=== PATIENT | male | born 1955 | race Caucasian/White ===

== ENCOUNTER → 2016-06-16 | Outpatient (CLI) | payer BC | END | disposition home or self-care (01) | LOC: GMAM 13:21 | PROVIDERS: ATTEND Family Medicine | DX: N17.9 Acute kidney failure, unspecified (principal) ==

== ENCOUNTER 2016-07-15 11:45 | Emergency (ER) | payer BC ==
[2016-07-15 11:56] VITALS: TEMP 98.2
--- NOTE | 2016-07-15 12:27 | RAD ---
EXAM DESCRIPTION: Femur,Right (accession [id number]), Hip,Right 2 Views (accession [id number]), Knee,Right 2 or More Views (accession [id number]) CLINICAL HISTORY: 61 years, Male, fall c pain 2 d ago COMPARISON: None. FINDINGS: Right hip demonstrates no fractures or dislocations or joint space unremarkable. Included pelvis unremarkable. The right femur also demonstrates no fractures. The right knee demonstrates moderate narrowing in the medial compartment with mild osteophyte changes in all three compartments and more severe narrowing in the patellofemoral compartment. However there is a comminuted fracture to the proximal diaphysis of the fibula with minimal displacement. IMPRESSION: Right proximal fibula demonstrates a comminuted fracture to the diaphysis. Would recommend tibia-fibula study to evaluate the remainder of the lower extremities. Right knee demonstrates moderate to severe patellofemoral arthritis and mild at the medial compartment. Electronically signed by: Roberto Garner MD 07/15/2016 12:27 PM CDT
--- NOTE | 2016-07-15 12:27 | RAD ---
EXAM DESCRIPTION: Femur,Right (accession [id number]), Hip,Right 2 Views (accession [id number]), Knee,Right 2 or More Views (accession [id number]) CLINICAL HISTORY: 61 years, Male, fall c pain 2 d ago COMPARISON: None. FINDINGS: Right hip demonstrates no fractures or dislocations or joint space unremarkable. Included pelvis unremarkable. The right femur also demonstrates no fractures. The right knee demonstrates moderate narrowing in the medial compartment with mild osteophyte changes in all three compartments and more severe narrowing in the patellofemoral compartment. However there is a comminuted fracture to the proximal diaphysis of the fibula with minimal displacement. IMPRESSION: Right proximal fibula demonstrates a comminuted fracture to the diaphysis. Would recommend tibia-fibula study to evaluate the remainder of the lower extremities. Right knee demonstrates moderate to severe patellofemoral arthritis and mild at the medial compartment. Electronically signed by: Roberto Garner MD 07/15/2016 12:27 PM CDT
--- NOTE | 2016-07-15 12:27 | RAD ---
EXAM DESCRIPTION: Femur,Right (accession [id number]), Hip,Right 2 Views (accession [id number]), Knee,Right 2 or More Views (accession [id number]) CLINICAL HISTORY: 61 years, Male, fall c pain 2 d ago COMPARISON: None. FINDINGS: Right hip demonstrates no fractures or dislocations or joint space unremarkable. Included pelvis unremarkable. The right femur also demonstrates no fractures. The right knee demonstrates moderate narrowing in the medial compartment with mild osteophyte changes in all three compartments and more severe narrowing in the patellofemoral compartment. However there is a comminuted fracture to the proximal diaphysis of the fibula with minimal displacement. IMPRESSION: Right proximal fibula demonstrates a comminuted fracture to the diaphysis. Would recommend tibia-fibula study to evaluate the remainder of the lower extremities. Right knee demonstrates moderate to severe patellofemoral arthritis and mild at the medial compartment. Electronically signed by: Roberto Garner MD 07/15/2016 12:27 PM CDT
--- NOTE | 2016-07-15 12:57 | RAD ---
EXAM DESCRIPTION: Tibia/Fibula,Right CLINICAL HISTORY: 61 yearsMale, right leg pain. Fall 2 days ago. COMPARISON: None. IMPRESSION: 2 views of the right tibia and fibula demonstrate a comminuted mildly displaced acute oblique fracture in the proximal metaphysis of the right fibula. The remaining osseous structures show no evidence of acute fracture or destructive osseous lesion. Mild degenerative changes are noted in the knee. There is mild generalized soft tissue swelling in the calf. Electronically signed by: Nomi Tucker MD 07/15/2016 12:55 PM CDT
--- NOTE | 2016-07-15 13:04 | ED.PDOC ---
History of Present Illness - General Chief Complaint: Lower Extremity Injury Stated Complaint: right knee pain Time Seen by Provider: 07/15/16 11:45 Source: patient Exam Limitations: no limitations - History of Present Illness Initial Comments: The patient is a 61-year-old male with a long-standing history of multiple medical problems presenting after a fall in his garage from 3 days ago. The patient has had continued pain in his right lower extremity extending from his mid salgado all the way up to his hip on the right. He has been ambulatory with his cane but with significant difficulty. He does have significant history of COPD CHF and a previous stroke. He does have significant limitations with ambulations to start with. He reports good blood sugar control recently. He did not pass out. No other injuries from the fall. He simply slipped and fell. Examination of the right lower extremity shows mild bruising in the areas described above. There are no gross bony deformities however there is some significant swelling around the knee and just distal to the knee. No pain over the tibia. There is some pain over the proximal fibula. No pain over the patella. Passive range of motion of the hip seems to be fairly normal. He does have some discomfort palpation over the right posterior buttocks from where he landed. Mild pain over the coccyx as well. Severity: moderate Improving Factors: immobilization Worsening Factors: movement Associated Symptoms: denies symptoms Allergies/Adverse Reactions: Allergies NO KNOWN ALLERGY Allergy (Verified 02/09/16 18:08) Home Medications: Ambulatory Orders Allopurinol [Zyloprim] 300 mg PO DAILY 04/02/14 Atorvastatin Calcium [Lipitor] 80 mg PO BEDTIME 04/02/14 Clopidogrel Bisulfate 75 mg PO BEDTIME 04/02/14 Venlafaxine HCl [Venlafaxine HCl ER] 75 mg PO BEDTIME 04/02/14 Furosemide [Lasix] 20 mg PO DAILY 02/09/16 Glipizide [Glipizide ER] 2.5 mg PO BID 02/09/16 Metoprolol Succinate [Metoprolol Succinate ER] 100 mg PO BID 02/09/16 Potassium Chloride [Potassium Chloride ER] 10 meq PO DAILY 02/09/16 Terbinafine HCl 250 mg PO DAILY 02/09/16 Uqpwbkwitjoao-Qjre-Nxjxejxkod [Fioricet] 1 ea PO Q8H PRN #21 tab 07/15/16 Review of Systems - Review of Systems Review of Systems: 07/15/16 13:04 compared to baseline: Constitutional: States: no symptoms reported EENTM: States: no symptoms reported Respiratory: States: no symptoms reported Cardiology: States: no symptoms reported Gastrointestinal/Abdominal: States: no symptoms reported Genitourinary: States: no symptoms reported Musculoskeletal: States: see HPI Skin: States: no symptoms reported Neurological: States: no symptoms reported Endocrine: States: no symptoms reported All other Systems: No Change from Baseline Past Medical History (General) - Patient Medical History Hx Seizures: No Hx Stroke: Yes Hx Dementia: No Hx Asthma: No Hx of COPD: No Hx Cardiac Disorders: Yes - dyslipidemia Hx Congestive Heart Failure: Yes Hx Pacemaker: No Hx Hypertension: Yes Hx Thyroid Disease: No Hx Diabetes: Yes Hx Gastroesophageal Reflux: Yes Hx Renal Disease: Yes - kidney stones Hx Cancer: No Hx of HIV: No Hx Hepatitis C: No Hx MRSA: No - Vaccination History Hx Tetanus, Diphtheria Vaccination: No Hx Influenza Vaccination: Yes Hx Pneumococcal Vaccination: No Immunizations Up to Date: No - Social History Hx Tobacco Use: Yes Hx Chewing Tobacco Use: Yes - 2/day Hx Alcohol Use: No Hx Substance Use: No Hx Substance Use Treatment: No Hx Depression: No Hx Physical Abuse: No Hx Emotional Abuse: No - Female History Patient : No Family Medical History - Family History Mother Family History: Unknown Physical Exam - Physical Exam General Appearance: Alert, Anxious Eye Exam: bilateral normal Ears, Nose, Throat: normal ENT inspection Neck: full range of motion, supple Respiratory: chest non-tender, lungs clear, normal breath sounds, no respiratory distress, no accessory muscle use Cardiovascular/Chest: normal peripheral pulses, other - regular rate Peripheral Pulses: radial,right: 2+, radial,left: 2+, dorsalis pedis,right: 2+, dorsalis pedis,left: 2+ Gastrointestinal/Abdominal: soft - obese Rectal Exam: deferred Back Exam: normal inspection Extremity: other - see history of present illness. He does have chronic bilateral lower extremity edema which is present at 1+ bilaterally today Neurologic: alert, normal mood/affect, oriented x 3 Skin Exam: normal color - with the exception of the mild bruising as stated above Comments: Vital Signs - 24 hr 07/15/16 11:48 Temperature 98.2 F Pulse Rate [ 110 H monitor] Respiratory 22 Rate Blood Pressure 132/91 [Left Arm] O2 Sat by Pulse 95 Oximetry Progress - Progress Progress: 07/15/16 13:05 the patient is a 61-year-old male presenting to the emergency room after a fall 3 days ago due to persistent right lower extremity pain. Workup in the form of x-rays of the right hip, femur, knee and tib-fib show only a mildly comminuted fracture of the proximal fibula on the right. No other fracture or dislocation is found. Given the patient's difficulties with ambulation already, I do not believe the patient would benefit from a walking boot or knee immobilizer, as these would only likely increase his fall risk and further injury. For now he needs to use his walker at home rather than the cane. I recommend that he follow-up with his primary care doctor between one and 2 weeks from now for reevaluation. ER warnings were given. He is written for a short prescription for Fioricet for pain control for as needed use. No evidence clinically of compartment syndrome. 07/15/16 13:09 - EKG/XRAY/CT CT Ordered: No CT Interpretation Call Back: No Departure - Departure Clinical Impression: Fracture due to fall Fracture of lower extremity Qualifiers: Encounter type: initial encounter Fracture type: closed Laterality: right Qualifier Code: (S82.91XA) Unspecified fracture of right lower leg, initial encounter for closed fracture Disposition: Discharge to Home or Self Care Condition: Fair Departure Forms: ED Discharge - Pt. Copy, Patient Portal Self Enrollment Instructions: Fracture Diet: diabetic diet Referrals: Matt Huffman MD [Primary Care Provider] - 1-2 Weeks Prescriptions: Vioceejunlnus-Pqxq-Tiywluyseu [Fioricet] 1 ea PO Q8H PRN #21 tab PRN Reason: Pain Home Medications: Ambulatory Orders Allopurinol [Zyloprim] 300 mg PO DAILY 04/02/14 Atorvastatin Calcium [Lipitor] 80 mg PO BEDTIME 04/02/14 Clopidogrel Bisulfate 75 mg PO BEDTIME 04/02/14 Venlafaxine HCl [Venlafaxine HCl ER] 75 mg PO BEDTIME 04/02/14 Furosemide [Lasix] 20 mg PO DAILY 02/09/16 Glipizide [Glipizide ER] 2.5 mg PO BID 02/09/16 Metoprolol Succinate [Metoprolol Succinate ER] 100 mg PO BID 02/09/16 Potassium Chloride [Potassium Chloride ER] 10 meq PO DAILY 02/09/16 Terbinafine HCl 250 mg PO DAILY 02/09/16 Gzuveljidsnxx-Govp-Mkqntohxde [Fioricet] 1 ea PO Q8H PRN #21 tab 07/15/16 Additional Instructions: the patient is a 61-year-old male presenting to the emergency room after a fall 3 days ago due to persistent right lower extremity pain. Workup in the form of x-rays of the right hip, femur, knee and tib-fib show only a mildly comminuted fracture of the proximal fibula on the right. No other fracture or dislocation is found. Given the patient's difficulties with ambulation already, I do not believe the patient would benefit from a walking boot or knee immobilizer, as these would only likely increase his fall risk and further injury. For now he needs to use his walker at home rather than the cane. I recommend that he follow-up with his primary care doctor between one and 2 weeks from now for reevaluation. ER warnings were given. He is written for a short prescription for Fioricet for pain control for as needed use. No evidence clinically of compartment syndrome.
[2016-07-15 13:30] VITALS: BP 100/64; O2SAT 94
== END 2016-07-15 13:30 | disposition home or self-care (01) ==
LOC: ER 11:45
DX: S82.451A Displaced comminuted fracture of shaft of right fibula, initial encounter for closed fracture (principal); J44.9 Chronic obstructive pulmonary disease, unspecified; E78.5 Hyperlipidemia, unspecified; I11.0 Hypertensive heart disease with heart failure; I50.9 Heart failure, unspecified; Z86.73 Personal history of transient ischemic attack (TIA), and cerebral infarction without residual deficits; E11.9 Type 2 diabetes mellitus without complications; K21.9 Gastro-esophageal reflux disease without esophagitis; Z87.442 Personal history of urinary calculi; Z87.891 Personal history of nicotine dependence; Z79.899 Other long term (current) drug therapy; W19.XXXA Unspecified fall, initial encounter; Y92.008 Other place in unspecified non-institutional (private) residence as the place of occurrence of the external cause

== ENCOUNTER → 2016-07-27 | Outpatient (CLI) | payer BC | END | disposition home or self-care (01) | LOC: GMAM 11:06 | PROVIDERS: ATTEND Family Medicine | DX: E03.9 Hypothyroidism, unspecified (principal); N17.9 Acute kidney failure, unspecified; Z12.5 Encounter for screening for malignant neoplasm of prostate ==

== ENCOUNTER → 2016-09-16 | Outpatient (CLI) | payer BC | END | disposition home or self-care (01) | LOC: GMAM 15:35 | PROVIDERS: ATTEND Family Medicine | DX: E03.9 Hypothyroidism, unspecified (principal) ==

== ENCOUNTER → 2016-10-06 | Outpatient (CLI) | payer BC | END | disposition home or self-care (01) | LOC: GMAM 12:20 | PROVIDERS: ATTEND Family Medicine | DX: N17.9 Acute kidney failure, unspecified (principal) ==

== ENCOUNTER → 2016-12-29 | Outpatient (CLI) | payer BC | LOC: GMAM 11:19 | PROVIDERS: ATTEND Family Medicine | DX: E03.9 Hypothyroidism, unspecified (principal); N17.9 Acute kidney failure, unspecified ==

== ENCOUNTER → 2017-01-20 | Outpatient (CLI) | payer BC | END | disposition home or self-care (01) | LOC: GMAM 14:08 | PROVIDERS: ATTEND Family Medicine | DX: E03.9 Hypothyroidism, unspecified (principal); E55.9 Vitamin D deficiency, unspecified ==

== ENCOUNTER → 2017-05-04 | Outpatient (CLI) | payer BC | END | disposition home or self-care (01) | LOC: GMAM 12:24 | PROVIDERS: ATTEND Family Medicine | DX: N18.3 Chronic kidney disease, stage 3 (moderate) (principal); E03.9 Hypothyroidism, unspecified; E78.2 Mixed hyperlipidemia ==

== ENCOUNTER → 2017-08-19 | Outpatient (CLI) | payer BC | LOC: GMAM 12:09 | PROVIDERS: ATTEND Family Medicine | DX: E03.9 Hypothyroidism, unspecified (principal); Z12.5 Encounter for screening for malignant neoplasm of prostate; E55.9 Vitamin D deficiency, unspecified ==

== ENCOUNTER → 2017-10-13 | Outpatient (CLI) | payer BC | LOC: GMAJS 14:27 | PROVIDERS: ATTEND Physician Assistant | DX: I63.50 Cerebral infarction due to unspecified occlusion or stenosis of unspecified cerebral artery (principal) ==

== ENCOUNTER → 2018-05-04 | Outpatient (CLI) | payer BC | LOC: GMAM 14:19 | PROVIDERS: ATTEND Family Medicine | DX: E53.8 Deficiency of other specified B group vitamins (principal); E03.9 Hypothyroidism, unspecified; M25.50 Pain in unspecified joint; E55.9 Vitamin D deficiency, unspecified ==

== ENCOUNTER → 2018-07-06 | Outpatient (CLI) | payer MEDICARE, BC ==
--- NOTE | 2018-07-07 16:22 | CT ---
EXAM DESCRIPTION: CT left foot CLINICAL HISTORY: LT FOOT PAIN M79.672 COMPARISON: None Available. TECHNIQUE: Spiral CT with multiplanar reformatted images. This exam was performed according to our departmental dose-optimization program, which includes automated exposure control, adjustment of the mA and/or kV according to patient size and/or use of iterative reconstruction technique. FINDINGS: Hallux valgus. Severe osteoarthritis between the metatarsal head and sesamoids and moderate osteoarthritis of the first MTP joint. No advanced arthrosis second through fifth metatarsal phalangeal joint. Interphalangeal joint space narrowing. No fracture of metatarsals or phalanges No advanced arthrosis or focal osteochondral lesion tarsometatarsal. Joint space narrowing second and third tarsometatarsal joints. No advanced arthrosis calcaneocuboid, talonavicular or navicular cuneiform Ankle mortise is symmetric. No advanced arthrosis or focal osteochondral lesion of the ankle Large os trigonum with hypertrophic changes at the pseudarthrosis with the posterior talus. Small marginal osteophytes along the medial and posterior subtalar joint. Large well-corticated enthesophyte at the Achilles tendon attachment. Small calcaneal spur at the plantar fascia and long plantar ligament attachments Small os naviculare. Posterior tibial, flexor digitorum and flexor hallux tendons are intact. No tendon sheath effusion. Peroneal tendons and dorsiflexion tendons are normal Dorsal subcutaneous soft tissue edema and swelling over the anterolateral ankle and dorsum of the foot Atrophic and fatty infiltrated intrinsic muscles of the foot Linear metallic density foreign body partially embedded in the medial cuneiform bone. Linear foreign body/wire about 1 cm in length. No diagnostic surrounding soft tissue abnormality. No other radiopaque foreign body IMPRESSION: Hallux valgus with osteoarthritis of the metatarsal phalangeal joint of the great toe Large os trigonum No diagnostic acute bony abnormality Linear metallic wire foreign body partially embedded in the medial cuneiform. No diagnostic surrounding inflammation in the plantar soft tissues Chronic Achilles tendinosis with large enthesophyte Electronically signed by: Matt Enciso MD 07/07/2018 4:19 PM CDT
== END ==
LOC: CT 14:17
PROVIDERS: ATTEND Family Medicine
DX: M19.072 Primary osteoarthritis, left ankle and foot (principal); M20.12 Hallux valgus (acquired), left foot; S90.852A Superficial foreign body, left foot, initial encounter; M76.62 Achilles tendinitis, left leg

== ENCOUNTER 2018-09-25 05:34 | Day surgery (SDC) | payer MEDICARE, BC ==
[2018-09-25] MEDS ORDERED: MOXIFLOXACIN HCL (OPHTH) 1 DROP DROPS ONE (06:06)
[2018-09-25] MEDS ORDERED: TROP 1%/CYCLOPEN 1%/PHENYL 2% DROPS ONE (06:06)
[2018-09-25] MEDS ORDERED: PROPARACAINE 0.5% OPHTH SOL 15 ML BTTL ONE (06:06)
[2018-09-25] MEDS: PROPARACAINE 0.5% OPHTH SOL 15 ML BTTL LEFT_EYE ONE (10:45)
[2018-09-25] MEDS: LIDOCAINE 1% MPF 2 ML VIAL INJ ONE ×2 (10:57→11:01)
[2018-09-25] MEDS: DEXAMETHASONE 0.1% OPHTH SOL 1 DROP LEFT_EYE ONE ×2 (10:57→11:17)
[2018-09-25] MEDS: MOXIFLOXACIN HCL (OPHTH) 1 DROP DROPS LEFT_EYE ONE ×2 (10:57→11:16)
[2018-09-25] MEDS: TOBRAMYCIN SULF 0.3 % OPHT SOL 1 DROP LEFT_EYE ONE ×2 (10:58→11:17)
[2018-09-25] MEDS ORDERED: MIDAZOLAM INJ 2 MG/2 ML VIAL ONE (10:58)
[2018-09-25] MEDS: BRIMONIDINE 0.2% OPHTH DROPS LEFT_EYE ONE ×2 (10:58→11:17)
== END 2018-09-25 11:57 | disposition home or self-care (01) ==
LOC: AMB 05:34
PROVIDERS: ATTEND Ophthalmology
DX: H25.12 Age-related nuclear cataract, left eye (principal); I11.0 Hypertensive heart disease with heart failure; I50.9 Heart failure, unspecified; I25.10 Atherosclerotic heart disease of native coronary artery without angina pectoris; E11.36 Type 2 diabetes mellitus with diabetic cataract; E07.9 Disorder of thyroid, unspecified; E66.01 Morbid (severe) obesity due to excess calories; J44.9 Chronic obstructive pulmonary disease, unspecified; Z79.01 Long term (current) use of anticoagulants; Z79.84 Long term (current) use of oral hypoglycemic drugs; Z79.899 Other long term (current) drug therapy
CPT/HCPCS: 00142; 36416; 66984; 82948; J2250

== ENCOUNTER → 2018-10-04 | Outpatient (CLI) | payer MEDICARE, BC | LOC: GMAM 10:26 | PROVIDERS: ATTEND Family Medicine | DX: Z12.5 Encounter for screening for malignant neoplasm of prostate (principal); E03.9 Hypothyroidism, unspecified; E55.9 Vitamin D deficiency, unspecified; I10 Essential (primary) hypertension; E11.9 Type 2 diabetes mellitus without complications ==

== ENCOUNTER 2018-10-09 05:34 | Day surgery (SDC) | payer MEDICARE, BC ==
[2018-10-09] MEDS ORDERED: MOXIFLOXACIN HCL (OPHTH) 1 DROP DROPS ONE (05:43)
[2018-10-09] MEDS ORDERED: TROP 1%/CYCLOPEN 1%/PHENYL 2% DROPS ONE (05:43)
[2018-10-09] MEDS ORDERED: PROPARACAINE 0.5% OPHTH SOL 15 ML BTTL ONE (05:43)
[2018-10-09] MEDS ORDERED: MIDAZOLAM INJ 2 MG/2 ML VIAL ONE ×2 (07:12→07:17)
[2018-10-09] MEDS ORDERED: LIDOCAINE 1% MPF 2 ML VIAL INJ ONE (07:29)
[2018-10-09] MEDS ORDERED: DEXAMETHASONE 0.1% OPHTH SOL 1 DROP RIGHT_EYE ONE ×2 (07:34→07:42)
[2018-10-09] MEDS ORDERED: MOXIFLOXACIN HCL (OPHTH) 1 DROP DROPS RIGHT_EYE ONE ×2 (07:34→07:40)
[2018-10-09] MEDS ORDERED: TOBRAMYCIN SULF 0.3 % OPHT SOL 1 DROP RIGHT_EYE ONE ×2 (07:34→07:42)
[2018-10-09] MEDS ORDERED: BRIMONIDINE 0.2% OPHTH DROPS RIGHT_EYE ONE ×2 (07:35→07:42)
== END 2018-10-09 08:26 | disposition home or self-care (01) ==
LOC: AMB 05:34
PROVIDERS: ATTEND Ophthalmology
DX: H25.11 Age-related nuclear cataract, right eye (principal); I10 Essential (primary) hypertension; Z79.899 Other long term (current) drug therapy
CPT/HCPCS: 00142; 36416; 66984; 82948; J2250

== ENCOUNTER → 2019-01-04 | Outpatient (CLI) | payer MEDICARE | LOC: GMAM 14:43 | PROVIDERS: ATTEND Family Medicine | DX: E03.9 Hypothyroidism, unspecified (principal); I10 Essential (primary) hypertension; E53.8 Deficiency of other specified B group vitamins; E78.2 Mixed hyperlipidemia; E11.9 Type 2 diabetes mellitus without complications; E55.9 Vitamin D deficiency, unspecified ==

== ENCOUNTER 2019-03-16 16:40 | Emergency (ER) | payer MEDICARE ==
[2019-03-16] MEDS ORDERED: SODIUM CHLORIDE 0.9% (FLUSH) 10 ML SYG IV PRN (17:00)
[2019-03-16 17:01] VITALS: TEMP 97.5
--- NOTE | 2019-03-16 17:07 | ED.PDOC ---
History of Present Illness - General Chief Complaint: General Stated Complaint: BLE weakness and trembling Time Seen by Provider: 03/16/19 16:53 Source: patient, RN notes reviewed, Vital Signs reviewed, EMS notes reviewed Exam Limitations: no limitations - History of Present Illness Initial Comments: Pt is a 63 yo male with PMH of CVA with residual left sided weakness, CHF, CKD, and COPD who uses a cane or walker to get around at home. He reports 3 day h/o bilateral lower extremity weakness and shaking of both legs. States it has been more difficult than usual to get around at home due to leg weakness. States he started a new diet pill by his PCP 2 weeks ago and increased the dose 3 days ago just before these symptoms began. Denies PARR, CP, nausea, speech difficulty, vision changes or SOB. Timing/Duration: getting worse Severity: moderate Improving Factors: nothing Worsening Factors: nothing Allergies/Adverse Reactions: Allergies NO KNOWN ALLERGY Allergy (Verified 09/27/18 16:37) Home Medications: Ambulatory Orders Allopurinol [Zyloprim] 300 mg PO DAILY 04/02/14 Atorvastatin Calcium [Lipitor] 80 mg PO BEDTIME 04/02/14 Venlafaxine HCl [Venlafaxine HCl ER] 75 mg PO BEDTIME 04/02/14 Glipizide [Glipizide ER] 2.5 mg PO BID 02/09/16 Potassium Chloride [Potassium Chloride ER] 10 meq PO BID 02/09/16 Albuterol Sulfate [Proair Hfa] 2 puff INH Q6H PRN 09/27/18 Amlodipine Besylate 5 mg PO DAILY@0700 09/27/18 Cholecalciferol [Vitamin D-3] 5,000 unit PO BID 09/27/18 Levothyroxine Sodium [Levo-T] 125 mcg PO ACBK 09/27/18 Valsartan-Hydrochlorothiazide [Valsartan/Hydrochlorothia 160-12.5 mg] 1 tab PO DAILY@0700 09/27/18 Apixaban [Eliquis] 2.5 mg PO BID 03/16/19 Semaglutide [Ozempic] 2 mg SUBCU WKLY 03/16/19 levoFLOXacin [Levaquin] 500 mg PO DAILY #7 tab 03/16/19 Review of Systems - Review of Systems Constitutional: States: weakness - generalized. Denies: chills, fever EENTM: Denies: blurred vision, ear pain, throat pain Respiratory: Denies: cough, orthopnea, short of breath, wheezing Cardiology: Denies: chest pain, edema, palpitations, syncope Gastrointestinal/Abdominal: Denies: abdominal pain, nausea, vomiting Musculoskeletal: Denies: back pain, joint swelling, neck pain All other Systems: Reviewed and Negative Past Medical History (General) - Patient Medical History Hx Seizures: No Hx Stroke: Yes - CVA 2008 w/left-sided weakness Hx Dementia: No Hx Asthma: Yes Hx of COPD: No Hx Cardiac Disorders: Yes - Dyslipidemia Hx Congestive Heart Failure: Yes Hx Pacemaker: No Hx Hypertension: Yes Hx Thyroid Disease: No Hx Diabetes: Yes Hx Gastroesophageal Reflux: Yes Hx Renal Disease: Yes - kidney stones Hx Cancer: No Hx of HIV: No Hx Hepatitis C: No Hx MRSA: No Surgical History: no surgical history - Vaccination History Hx Tetanus, Diphtheria Vaccination: No Hx Influenza Vaccination: Yes - 2018 Hx Pneumococcal Vaccination: - unknown - Social History Hx Tobacco Use: No Hx Chewing Tobacco Use: Yes Hx Alcohol Use: No Hx Substance Use: No Hx Substance Use Treatment: No Hx Depression: No Hx Physical Abuse: No Hx Emotional Abuse: No - Female History Patient : No Family Medical History - Family History Mother Family History: Unknown Physical Exam - Physical Exam General Appearance: Alert, Comfortable, No apparent distress, Obese, Unkempt Eye Exam: bilateral normal - PERRL Ears, Nose, Throat: normal pharynx Neck: non-tender, full range of motion, supple Respiratory: chest non-tender, lungs clear, normal breath sounds, no respiratory distress, no accessory muscle use Cardiovascular/Chest: regular rate, rhythm, no JVD, other - bilateral pretibial edema Gastrointestinal/Abdominal: non tender, soft, other - obese Back Exam: normal inspection, no vertebral tenderness Extremity: normal range of motion, non-tender, other - No calf tenderness Neurologic: team primary care physician II-XII nml as tested, alert, normal mood/affect, other - There are no tremors to extremities. He is able to hold each extremity off the bed 10 seconds with no drift. Skin Exam: normal color Comments: 5/5 strength in right extremities. 4+ strength on left c/w his previous CVA with residual left sided weakness Progress - Progress Progress: 03/16/19 18:01 I have d/w pt and family initial lab results. His creatinine today is 2.4. Per EMR, last value was 3+ years ago and has been in 1.5-1.9 range. 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 Will treat with 500cc NS in ED. Pt and state that he has not been eating or drinking much past 10 days since starting the new diet pill his PCP prescribed because he is just not hungry. Glucose 65 here and given snack tray. Awaiting urine results. 03/16/19 19:02 03/16/19 19:36 D/W pt UA results showing UTI. No fever or vomiting. I have offered admission for IV antibiotics and hydration, but patient declines. and sister are at bedside and feel comfortable taking him home. Will give IV Rocephin here and start Levaquin at home tomoorow. Will f/u with PCP in 1-2 days for recheck. SRP given - Results/Orders Results/Orders: 03/16/19 17:00 Sodium Chloride 0.9% (Flush) [Saline Flush Syringe] 10 ml IV PRN PRN EKG STAT 03/16/19 19:02 Urine Culture Stat 03/16/19 19:35 [id number] SODIUM [Rocephin] 1 gm Sodium Chl 0.9% 50Ml Min-Bag+ [NS 50ml MINI-BAG+] 50 ml IVPB ONCE 03/17/19 17:00 EKG STAT Laboratory Results - last 24 hr 03/16/19 03/16/19 03/16/19 17:00 17:00 17:00 WBC 13.5 H RBC 4.62 L Hgb 15.2 Hct 46.4 MCV 100.4 H MCH 32.8 H MCHC 32.7 L RDW 14.6 H Plt Count 224 MPV 8.9 Absolute Neuts (auto) 9.40 H Absolute Lymphs (auto) 1.90 Absolute Monos (auto) 2.00 H Absolute Eos (auto) 0.10 Absolute Basos (auto) 0.10 Neutrophils % 69.5 Lymphocytes % 13.8 L Monocytes % 15.2 H Eosinophils % 0.8 L Basophils % 0.7 PT 10.7 INR 1.07 PTT (SP) 25.2 Sodium 142 Potassium 3.7 Chloride 100 L Carbon Dioxide 22 Anion Gap 23.7 H BUN 29 H Creatinine 2.43 H BUN/Creatinine Ratio 11.9 Random Glucose 65 L Serum Osmolality 287.1 Calcium 9.8 Total Bilirubin 1.0 AST 39 ALT 30 Alkaline Phosphatase 61 Creatine Kinase 111 CK-MB (CK-2) 1.8 CK-MB (CK-2) % Not Reportable Troponin I < 0.02 Serum Total Protein 7.4 Albumin 4.2 Globulin 3.2 Albumin/Globulin Ratio 1.3 Urine Color Urine Appearance Urine pH Ur Specific [place] Urine Protein Urine Glucose (UA) Urine Ketones Urine Blood Urine Nitrite Urine Bilirubin Urine Urobilinogen Ur Leukocyte Esterase Urine RBC Urine WBC Ur Epithelial Cells Urine Bacteria Urine Sperm 03/16/19 19:02 WBC RBC Hgb Hct MCV MCH MCHC RDW Plt Count MPV Absolute Neuts (auto) Absolute Lymphs (auto) Absolute Monos (auto) Absolute Eos (auto) Absolute Basos (auto) Neutrophils % Lymphocytes % Monocytes % Eosinophils % Basophils % PT INR PTT (SP) Sodium Potassium Chloride Carbon Dioxide Anion Gap BUN Creatinine BUN/Creatinine Ratio Random Glucose Serum Osmolality Calcium Total Bilirubin AST ALT Alkaline Phosphatase Creatine Kinase CK-MB (CK-2) CK-MB (CK-2) % Troponin I Serum Total Protein Albumin Globulin Albumin/Globulin Ratio Urine Color Dk yellow Urine Appearance Cloudy Urine pH 6.0 Ur Specific [place] 1.025 Urine Protein 30 Urine Glucose (UA) Negative Urine Ketones Negative Urine Blood Trace-lysed H Urine Nitrite NegativeCT Brain shows no acute process CXR- No acute process Urine Bilirubin Small H Urine Urobilinogen 1.0 Ur Leukocyte Esterase Small H Urine RBC 1-3 Urine WBC >50 H Ur Epithelial Cells 3-5 Urine Bacteria 1+ Urine Sperm 0-1 CT Brain- No acute process CXR- No acute process - EKG/XRAY/CT EKG: Tachy Comments: rate 107, nml intervals, no ischemic changes Departure - Departure Clinical Impression: Generalized weakness Urinary tract infection Qualifiers: Urinary tract infection type: acute cystitis Hematuria presence: without hematuria Qualified Code(s): N30.00 - Acute cystitis without hematuria Hypertension Qualifiers: Hypertension type: essential hypertension Qualified Code(s): I10 - Essential (primary) hypertension CKD (chronic kidney disease) Qualifiers: Chronic kidney disease stage: unspecified stage Qualified Code(s): N18.9 - Chronic kidney disease, unspecified Time of Disposition: 19:39 Disposition: Discharge to Home or Self Care Condition: Good Departure Forms: ED Discharge - Pt. Copy, Patient Portal Self Enrollment Instructions: Urinary Tract Infection, Adult (DC) Activity: increase activity as tolerated Referrals: Matt Huffman MD [Primary Care Provider] - 1-2 Days Prescriptions: levoFLOXacin [Levaquin] 500 mg PO DAILY #7 tab Home Medications: Ambulatory Orders Allopurinol [Zyloprim] 300 mg PO DAILY 04/02/14 Atorvastatin Calcium [Lipitor] 80 mg PO BEDTIME 04/02/14 Venlafaxine HCl [Venlafaxine HCl ER] 75 mg PO BEDTIME 04/02/14 Glipizide [Glipizide ER] 2.5 mg PO BID 02/09/16 Potassium Chloride [Potassium Chloride ER] 10 meq PO BID 02/09/16 Albuterol Sulfate [Proair Hfa] 2 puff INH Q6H PRN 09/27/18 Amlodipine Besylate 5 mg PO DAILY@0700 09/27/18 Cholecalciferol [Vitamin D-3] 5,000 unit PO BID 09/27/18 Levothyroxine Sodium [Levo-T] 125 mcg PO ACBK 09/27/18 Valsartan-Hydrochlorothiazide [Valsartan/Hydrochlorothia 160-12.5 mg] 1 tab PO DAILY@0700 09/27/18 Apixaban [Eliquis] 2.5 mg PO BID 03/16/19 Semaglutide [Ozempic] 2 mg SUBCU WKLY 03/16/19 levoFLOXacin [Levaquin] 500 mg PO DAILY #7 tab 03/16/19
[2019-03-16] MEDS ORDERED: SODIUM CHLORIDE 0.9% 1000ML 500 ML IVS ONE (17:41)
--- NOTE | 2019-03-16 17:50 | CT ---
EXAM DESCRIPTION: Head CT without contrast CLINICAL HISTORY: Weakness COMPARISON: Previous MRI of the brain August 15, 2012 TECHNIQUE: Noncontrast head CT was performed with routine protocol. FINDINGS: Normal kaiser-white matter differentiation. Ventricles and sulci are prominent consistent with age-related cerebral volume loss. Low density white matter consistent with extensive chronic microvascular ischemic disease. Old lacunar infarct in the right thalamus and in the right internal capsule. Old right occipital lobe kaiser matter infarction. These findings were seen on the previous MRI. No high density hemorrhage, focal edema or shift of the midline. No sulcal effacement. Normal orbital contents. Basilar cisterns appear clear. Intact calvarium with no fracture or lytic lesion. Normal aeration of tympanic cavities and mastoid air cells. No fluid levels in the paranasal sinuses. Mucous retention cyst in the inferior right maxillary sinus. This was also present on the previous MRI. Skull base appears intact. Symmetrical internal auditory canals. Coronal and sagittal reformatted images confirm the findings. IMPRESSION: No acute intracranial pathologic process. Senescent brain with extensive chronic microvascular ischemic disease. Old right occipital lobe infarct. This exam was performed according to our departmental dose-optimization program, which includes automated exposure control, adjustment of the mA and/or kV according to patient size and/or use of iterative reconstruction technique. Total DLP equals 967.47 mGycm. Electronically signed by: Trey Quigley MD 03/16/2019 5:49 PM [facility]
--- NOTE | 2019-03-16 17:51 | RAD ---
EXAM DESCRIPTION: Chest x-ray,1 View CLINICAL HISTORY: 63 years Male, Generalized weakness COMPARISON: Previous study February 09, 2016 TECHNIQUE: AP portable chest. FINDINGS: Heart size is large with prominent central pulmonary vascularity. No brooks congestive failure. No consolidating infiltrate. No pulmonary mass or worrisome nodule. No pneumothorax or pleural effusion. Bones are unremarkable. IMPRESSION: Large heart without congestive failure. Electronically signed by: Trey Quigley MD 03/16/2019 5:50 PM [employer]
[2019-03-16 19:02] VITALS: O2SAT 94
[2019-03-16] MEDS ORDERED: cefTRIAXone SODIUM 1 GM in SODIUM CHL 0.9% 50ML MIN-BAG+ 50 ML IVPB ONE (19:35)
[2019-03-16] MEDS ORDERED: SODIUM CHL 0.9% 50ML MIN-BAG+ 50 ML IVPB ONE (19:43)
[2019-03-16] MEDS ORDERED: cefTRIAXone SODIUM 1 GM VIAL ONE (19:43)
[2019-03-16 20:22] VITALS: BP 129/86
== END 2019-03-16 20:08 | disposition home or self-care (01) ==
LOC: ER 16:40
DX: N30.00 Acute cystitis without hematuria (principal); R53.1 Weakness; E11.22 Type 2 diabetes mellitus with diabetic chronic kidney disease; I13.0 Hypertensive heart and chronic kidney disease with heart failure and stage 1 through stage 4 chronic kidney disease, or unspecified chronic kidney disease; N18.9 Chronic kidney disease, unspecified; I50.9 Heart failure, unspecified; E78.5 Hyperlipidemia, unspecified; K21.9 Gastro-esophageal reflux disease without esophagitis; I69.954 Hemiplegia and hemiparesis following unspecified cerebrovascular disease affecting left non-dominant side; Z79.899 Other long term (current) drug therapy
CPT/HCPCS: 36415; 70450; 71045; 80053; 81001; 82550; 82553; 84484; 85025; 85610; 85730; 87086; 93005; J0696; J7030; J7050

== ENCOUNTER → 2019-03-21 | Outpatient (CLI) | payer MEDICARE | LOC: YCHH 09:48 | PROVIDERS: ATTEND Family Medicine | DX: E11.9 Type 2 diabetes mellitus without complications (principal); I50.9 Heart failure, unspecified; N18.9 Chronic kidney disease, unspecified; D64.9 Anemia, unspecified ==

== ENCOUNTER → 2019-07-05 | Outpatient (CLI) | payer MEDICARE | DX: Z12.5 Encounter for screening for malignant neoplasm of prostate (principal); E03.9 Hypothyroidism, unspecified; I10 Essential (primary) hypertension; E78.2 Mixed hyperlipidemia | CPT/HCPCS: 84439; 84443; G0103 ==

== ENCOUNTER → 2019-08-15 | Outpatient (CLI) | payer MEDICARE | LOC: YCHH 10:32 | PROVIDERS: ATTEND Family Medicine | DX: R79.89 Other specified abnormal findings of blood chemistry (principal); E78.2 Mixed hyperlipidemia; D64.9 Anemia, unspecified; E03.9 Hypothyroidism, unspecified; E11.22 Type 2 diabetes mellitus with diabetic chronic kidney disease ==

== ENCOUNTER → 2019-09-25 | Outpatient (CLI) | payer MEDICARE | LOC: GMAM 10:50 | PROVIDERS: ATTEND Family Medicine | DX: E11.22 Type 2 diabetes mellitus with diabetic chronic kidney disease (principal); N18.3 Chronic kidney disease, stage 3 (moderate); D64.9 Anemia, unspecified; I69.354 Hemiplegia and hemiparesis following cerebral infarction affecting left non-dominant side ==

== ENCOUNTER → 2020-04-02 | Outpatient (CLI) | payer MEDICARE ==
--- NOTE | 2020-04-04 04:56 | MRI ---
Study: MRI of the Left Shoulder. Indication: PAIN IN LEFT SHOULDER Technique: Multiplanar, multi sequence MRI of the left shoulder was obtained without intravenous contrast. Comparison: None. Findings: Moderate hypertrophic AC joint osteoarthritis. Type I acromion with mild lateral downsloping. Supraspinatus and infraspinatus tendinosis and low-grade attenuation with scattered interstitial fissuring and bursal surface fraying throughout both tendons. Changes most pronounced anteriorly. No full-thickness tear. Subscapularis tendinosis. Mild atrophy and grade 1 fatty infiltration rotator cuff musculature. Intracapsular long head biceps tendinosis and attenuation. Circumferential labral truncation/degeneration. Mild glenohumeral joint osteoarthritis with a tiny joint effusion. No acute fracture. Impression: Supraspinatus and infraspinatus tendinosis with low-grade attenuation as well as scattered interstitial fissuring and bursal surface fraying. Subscapularis tendinosis. Mild atrophy and grade 1 fatty infiltration rotator cuff musculature. Intracapsular long head biceps tendinosis and attenuation. Circumferential labral truncation/degeneration Mild glenohumeral joint osteoarthritis with a tiny joint effusion. Moderate hypertrophic AC joint osteoarthritis. Electronically signed by: Stevan Coleman MD 04/04/2020 4:55 AM [employer]
== END ==
LOC: MRI 12:37
PROVIDERS: ATTEND Family Medicine
DX: M75.102 Unspecified rotator cuff tear or rupture of left shoulder, not specified as traumatic (principal); S43.432A Superior glenoid labrum lesion of left shoulder, initial encounter; M75.82 Other shoulder lesions, left shoulder; M19.012 Primary osteoarthritis, left shoulder; M75.22 Bicipital tendinitis, left shoulder; M62.512 Muscle wasting and atrophy, not elsewhere classified, left shoulder

== ENCOUNTER → 2020-04-08 | Outpatient (CLI) | payer MEDICARE | LOC: YCHH 10:41 | PROVIDERS: ATTEND Family Medicine | DX: R79.89 Other specified abnormal findings of blood chemistry (principal); E78.2 Mixed hyperlipidemia; D64.9 Anemia, unspecified; E55.9 Vitamin D deficiency, unspecified; E03.9 Hypothyroidism, unspecified ==

== ENCOUNTER → 2020-05-21 | Outpatient (CLI) | payer MEDICARE | LOC: YCHH 10:40 | PROVIDERS: ATTEND Family Medicine | DX: E03.9 Hypothyroidism, unspecified (principal); E79.0 Hyperuricemia without signs of inflammatory arthritis and tophaceous disease; R94.6 Abnormal results of thyroid function studies ==